=== PATIENT | female | born 1955 | race Caucasian/White ===

== ENCOUNTER 2021-10-08 11:11 | Outpatient (CLI) | payer MEDICARE, SELFPAY ==
--- NOTE | 2021-10-08 11:25 | MM_ITS ---
WS: [id number] BILATERAL SCREENING DIGITAL BREAST TOMOSYNTHESIS MAMMOGRAM WITH CAD HISTORY: SCREENING COMPARISON: 06/10/2020 and 05/21/2019 Bilateral CC and MLO views with tomosynthesis and synthetic mammography submitted. Computer aided det ection analyzed. Breast composition: There are scattered areas of fibroglandular density. No suspicious masses, microc alcifications or architectural distortion. Post biopsy changes in the upper outer quadrant of the LEF T breast are stable. MM/[place] [id number] IMPRESSION: BI-RADS: 2-Benign FOLLOW UP: 1 Year Follow-up
== END 2021-10-08 11:12 | disposition home or self-care (01) ==
PROVIDERS: Family Provider Nurse Practitioner Family; PCP Nurse Practitioner Family; Visit Provider Registered Nurse
DX: Z12.31 Encounter for screening mammogram for malignant neoplasm of breast (principal)
CPT/HCPCS: 77063; 77067

== ENCOUNTER 2022-10-10 12:28 | Outpatient (CLI) | payer MEDICARE, SELFPAY ==
--- NOTE | 2022-10-10 13:13 | MM_ITS ---
WS: [email or web address] BILATERAL 3D TOMOSYNTHESIS DIGITAL SCREENING MAMMOGRAPHY WITH CAD CLINICAL INFORMATION: SCREENING HISTORY: Screening mammogram. No current complaints. COMPARISON: 2021 TECHNIQUE: Bilateral CC and MLO views. FINDINGS: Scattered fibroglandular densities bilaterally. No suspicious focal mass, asymmetry, calcifications, or architectural distortion. No evidence of malignancy. Punctate and lucent centered calcifications. MM/[place] [id number] IMPRESSION: BI-RADS: 2-Benign FOLLOW UP: 1 Year Follow-up Recommend return to annual screening mammography.
== END 2022-10-10 12:29 | disposition home or self-care (01) ==
LOC: RAD 12:35
PROVIDERS: PCP Registered Nurse; Visit Provider Registered Nurse
DX: Z12.31 Encounter for screening mammogram for malignant neoplasm of breast (principal)
CPT/HCPCS: 77063; 77067

== ENCOUNTER 2023-10-07 15:52 | Emergency (ER) | payer MEDICARE, SELFPAY ==
[2023-10-07 15:56] VITALS: BP 159/88; PULSE 75; RESP 16; TEMP 36.6; O2SAT 99; BMI 29.6
--- NOTE | 2023-10-07 16:07 | XRR_ITS ---
PROCEDURE INFORMATION: Exam: XR Pelvis Exam date and time: 10/07/2023 5:18 PM Age: 68 years old Clinical indication: Pelvic pain; Additional info: Pain in pelvis/hip TECHNIQUE: Imaging protocol: Radiologic exam of the pelvis. Views: 1 or 2 view. COMPARISON: No relevant prior studies available. FINDINGS: Bones/joints: Normal mineralization and alignment. No evidence of acute fracture or dislocation. [id number] degenerative changes of the bilateral femoroacetabular joints. Visualized sacroiliac joints are within normal limits. Soft tissues: Unremarkable. XR/XR pelvis 1-2V* [id number] IMPRESSION: No evidence of acute fracture or dislocation.
--- NOTE | 2023-10-07 16:07 | XRR_ITS ---
PROCEDURE INFORMATION: Exam: XR Right Hip Exam date and time: 10/07/2023 5:20 PM Age: 68 years old Clinical indication: Hip pain; Right hip TECHNIQUE: Imaging protocol: Radiologic exam of the right hip. Views: 1 view hip with pelvis when performed. COMPARISON: CR (PELVIS, ) 10/07/2023 5:18 PM FINDINGS: Bones/joints: Normal mineralization and alignment. No evidence of acute fracture or dislocation. Aaln-[id number]-vivfdxse degenerative change of the right femoroacetabular joint. Soft tissues: The soft tissues are within normal limits. XR/XR hip RT 2-3V wo/w pel* [id number] IMPRESSION: No evidence of acute fracture or dislocation.
--- NOTE | 2023-10-07 18:20 | ED_ITS ---
HPI - Extremity Problem General: Chief complaint: Extremity Injury, Lower Stated complaint: pain in right hip and leg Time Seen by Provider: 10/07/23 17:04 History of Present Illness: 68-year-old female here with 4 weeks of right-sided hip pain, mainly posterior and lateral. She is having pain at night. She says she has been running a 0 turn mower quite a bit, and noticed that the pain started with increased use. No trauma otherwise. No numbness or tingling. No weakness. No back pain. No fever. Associated symptoms: Deny chest pain or fever(s) Review of Systems Const: Denies: fever(s) ENMT: Denies: throat pain Card: Denies: chest pain Resp: Denies: dyspnea GI: Denies: abdominal pain or vomiting : Denies: flank pain or difficulty voiding Musc: Denies: back pain Physical Exam Const: COMMON NORMALS: no acute distress GENERAL APPEARANCE: cooperative; not ill appearing and not frail appearing HENMT: COMMON NORMALS: normocephalic, atraumatic and Normal external nose present HEAD & SCALP: normocephalic and atraumatic FACE & SINUS: normal facial exam and face symmetric NOSE: Normal external nose present Eye: COMMON NORMALS: Equal, round and reactive pupils present and EOMs intact bilaterally PUPIL: Yes Equal, round and reactive pupils present Neck/C-Spine: GENERAL: Yes trachea midline Chest: CHEST: Yes Symmetrical chest wall rise Resp: COMMON NORMALS: normal respiratory effort, No retractions, No use of accessory muscles and clear to auscultation bilaterally AUSCULTATION: clear to auscultation bilaterally Cardio: COMMON NORMALS: regular rate and regular rhythm RATE: regular rate RHYTHM: regular rhythm GI: COMMON NORMALS: Normal to inspection, nondistended, normoactive bowel sounds present Back/Pelvis: OTHER: Exam reveals minimal tenderness over the trochanteric region and piriformis region of the right hip. No anterior tenderness. Straight leg raise test is negative. Sciatic stretch test is negative. Maia test is negative. Internal rotation is negative Extremity: COMMON NORMALS: no pedal edema Neuro: YON COMA SCALE: document GCS findings Yon coma scale eye opening: Spontaneous Yon coma scale verbal response: Orientated [place] coma scale motor response: Obey commands [place] coma scale total score: 15 SENSORY EXAM: Yes extremities (intact) Psych: COMMON NORMALS: speech normal SPEECH: Yes normal speech Skin: COMMON NORMALS: no rashes or lesions noted GENERAL SKIN EXAM: no rashes or lesions noted Course Vital Signs: Vital signs: Vital Signs Temperature 97.8 F 10/07/23 15:56 Pulse Rate 75 10/07/23 15:56 Respiratory Rate 17 10/07/23 18:27 Blood Pressure 159/88 10/07/23 15:56 Pulse Oximetry 99 10/07/23 18:27 Oxygen Delivery Me thod Room Air 10/07/23 15:56 MDM - Extremity (Nontraumatic) Medical Decision Making X-rays are negative for fracture. She does have some mild arthritic change of her right hip joint as well as her right sacroiliac joint. No red flag symptoms. Outpatient follow-up. Lab Data Radiology Impressions Hip/Pelvis X-Ray 10/07/23 16:07 IMPRESSION: No evidence of acute fracture or dislocation. Pelvis X-Ray 10/07/23 16:07 IMPRESSION: No evidence of acute fracture or dislocation. All radiology interpretation(s) finalized by discharge Discharge Plan Discharge Patient Disposition: Home Clinical Impression: Acute pain of right hip, Sciatic neuralgia Condition: Stable Prescriptions: New Medrol (Abhay) 4 mg tablets,dose pack See Rx Instructions .ROUTE .COMPLEX Qty: 21 0RF Rx Instructions: orally per package directions tramadol 50 mg tablet 50 mg PO Q8H PRN (Reason: pain) Qty: 10 0RF Discharge Orders: Discharge ED (Routine); Ordered 10/07/23 Ordered By: Óscar Amado Referrals: Romana Gray [Primary Care Provider] - 4-7 days Patient Instructions: Sciatica (ED), Hip Pain (ED), Opioid Safety, Pain Management Activity Restrictions/Additional Instructions: Medications as directed. Ice may help. See your doctor next week. Coding Level of Care Code ED Diaper Machine Tender for Janeth Peters
[2023-10-07 18:27] VITALS: RESP 17; O2SAT 99
[2023-10-07] MEDS: oxyCODONE-APAP 5-325 mg Tablet 2 TAB PO (18:27)
[2023-10-07] MEDS: dexamethasone 10 mg/mL INJ 8 MG PO (18:27)
== END 2023-10-07 18:42 | disposition home or self-care (01) ==
PROVIDERS: Emergency Provider Emergency Medicine; PCP Registered Nurse
DX: M25.551 Pain in right hip (principal); G58.8 Other specified mononeuropathies
CPT/HCPCS: 72170; 73502; 99284; J1100

== ENCOUNTER 2023-10-27 10:31 | Outpatient (CLI) | payer MEDICARE, SELFPAY ==
--- NOTE | 2023-10-27 10:37 | MM_ITS ---
WS: [id number] BILATERAL SCREENING DIGITAL TOMOSYNTHESIS MAMMOGRAM WITH CAD HISTORY: SCREENING COMPARISON: 10/10/2022, 10/08/2021, 06/10/2020 Bilateral CC and MLO views with tomosynthesis and synthetic mammography submitted. Computer aided det ection analyzed. Breast composition: There are scattered areas of fibroglandular density. No suspicious masses, microc alcifications or architectural distortion. Benign calcifications in each breast. MM/[place] [id number] IMPRESSION: BI-RADS: 2-Benign FOLLOW UP: 1 Year Follow-up
== END 2023-10-27 10:32 | disposition home or self-care (01) ==
LOC: RAD 10:31
PROVIDERS: PCP Registered Nurse; Visit Provider Registered Nurse
DX: R92.1 Mammographic calcification found on diagnostic imaging of breast (principal); R92.323 Mammographic fibroglandular density, bilateral breasts; R92.8 Other abnormal and inconclusive findings on diagnostic imaging of breast
CPT/HCPCS: 77063; 77067

== ENCOUNTER → 2024-07-02 11:10 | Outpatient (BNVA) | payer MEDICARE, SELFPAY | PROVIDERS: PCP Registered Nurse; Visit Provider Nurse Practitioner Family | DX: I10 Essential (primary) hypertension (principal); R53.83 Other fatigue; L60.4 Beau's lines; E55.9 Vitamin D deficiency, unspecified; R35.0 Frequency of micturition; E78.5 Hyperlipidemia, unspecified; N39.0 Urinary tract infection, site not specified | CPT/HCPCS: 80053; 80061; 81000; 82306; 82607; 85025; 87086 ==

== ENCOUNTER 2024-07-23 09:33 | Outpatient (CLI) | payer MEDICARE, SELFPAY ==
--- NOTE | 2024-07-23 10:00 | XRR_ITS ---
PROCEDURE INFORMATION: Exam: XR Right Hip Exam date and time: 07/23/2024 10:13 AM Age: 69 years old Clinical indication: Intermittent right hip pain x 1 yr, worse in the past month, no acute injury; Additional info: M25.551 - pain in right hip TECHNIQUE: Imaging protocol: Radiologic exam of the right hip. Views: 1 view hip with pelvis when performed. COMPARISON: CR XR hip RT 2-3V wo/w pel* [id number] 10/07/2023 5:20 PM FINDINGS: Bones/joints: Prominent right superolateral acetabular lip. This can result in femoroacetabular impingement. Mild osteitis pubis. Spondylosis visualized lower lumbar spine. Otherwise, unremarkable. Soft tissues: Unremarkable. XR/XR hip RT 2-3V wo/w pel* [id number] IMPRESSION: 1. Possible right femoroacetabular impingement. 2. Otherwise, negative right hip.
== END 2024-07-23 09:34 | disposition home or self-care (01) ==
PROVIDERS: PCP Nurse Practitioner Family; Visit Provider Nurse Practitioner Family
DX: M25.551 Pain in right hip (principal); R93.7 Abnormal findings on diagnostic imaging of other parts of musculoskeletal system; R93.89 Abnormal findings on diagnostic imaging of other specified body structures; M47.896 Other spondylosis, lumbar region
CPT/HCPCS: 73502

== ENCOUNTER 2024-08-13 09:21 | Outpatient (CLI) | payer MEDICARE, SELFPAY ==
--- NOTE | 2024-08-13 09:45 | MR_ITS ---
WS: [email or web address] EXAMINATION: MR hip RT wo con* [id number] ORDER DATE: 08/13/2024 9:25 AM COMPARISON: None. HISTORY: M25.551 - Pain in right hip CONTRAST: None. TECHNIQUE: Coronal STIR of the Pelvis. Coronal proton density, coronal T1, axial T2 fat sat, axial T1, sagittal T2 fat sat, and sagittal T1 performed of the hip. FINDINGS: Normal bone marrow signal in the bony pelvis and sacrum. Normal pubic rami. Normal bone marrow signal in the femoral heads and acetabulum bilaterally. No evidence of avascular necrosis. Moderate degenerative narrowing RIGHT hip. No subchondral edema. No acute fractures. Mild fluid and edema tip of the coccyx compatible with coccydynia. This is likely inflammatory. No visualized acute fractures. MR/MR hip RT wo con* [id number] IMPRESSION: 1. Moderate degenerative narrowing RIGHT hip. No acute fractures. No evidence of avascular necrosis. 2. Normal bone marrow signal in the bony pelvis and sacrum. 3. Tiny amount of fluid at the tip of the coccyx likely inflammatory can be se en with coccydynia.
== END 2024-08-13 09:22 | disposition home or self-care (01) ==
PROVIDERS: PCP Nurse Practitioner Family; Visit Provider Nurse Practitioner Family
DX: M16.11 Unilateral primary osteoarthritis, right hip (principal); R93.7 Abnormal findings on diagnostic imaging of other parts of musculoskeletal system
CPT/HCPCS: 73721

== ENCOUNTER → 2024-08-23 09:42 | Outpatient (BNVA) | payer MEDICARE, SELFPAY | PROVIDERS: PCP Nurse Practitioner Family; Visit Provider Orthopaedic Surgery | DX: M54.50 Low back pain, unspecified (principal); M25.551 Pain in right hip | CPT/HCPCS: 99204 ==

== ENCOUNTER 2024-09-17 12:55 | Outpatient (CLI) | payer MEDICARE, SELFPAY ==
--- NOTE | 2024-09-17 08:00 | MR_ITS ---
WS: [id number] MRI LUMBAR SPINE NONCONTRAST HISTORY: lumbar pain COMPARISON: None available. TECHNIQUE: Sagittal and axial multisequence imaging is submitted. Normal lumbar alignment with no compression fractures or marrow edema. Minimal disc desiccation throughout the lumbar spine. Conus terminates normally at L1. L1-L2: Mild disc bulging with mild ligamentum flavum and facet arthritis. Mild narrowing of the RIGHT subarticular recess. No stenosis. L2-L3: Mild annular disc bulging with small foraminal osteophytes. Mild ligamentum flavum and facet arthritis. There is mild degenerative change encroaching upon the posterior lateral thecal sac. Mild encroachment upon the subarticular recesses and traversing L3 nerve roots. Mild central and bilateral subarticular recess stenosis. L3-L4: Mild annular disc bulging with mild osteophytic ridging. Moderate ligamentum flavum and facet arthritis encroaching upon the thecal sac. Osteophytes encroach upon the posterior lateral RIGHT thecal sac. Mild central, subarticular recess and foraminal narrowing. There is a very tiny cyst associat ed with the RIGHT facet joint arthropathy, seen best on the sagittal sequence. L4-L5: Mild annular disc bulge with a shallow central disc protrusion. Marked ligamentum flavum and facet arthritis. Mild disc encroachment upon the ventral thecal sac. Moderate central, subarticular recess and foraminal stenosis. There is disc and osteophyte encroachment upon the L4 and L5 nerve roots. L5-S1: Mild disc bulging contacting the S1 nerve roots, RIGHT greater than LEFT. Mild disc contact also of the exiting L5 nerve roots. Mild foraminal stenosis. Paravertebral soft tissues are negative. MR/MR lumbar spine wo con* [id number] IMPRESSION: 1. No high-grade central or foraminal stenosis. 2. L3-4: Ligamentum flavum and facet joint arthropathy encroaching upon the th ecal sac. Mild central, subarticular recess and foraminal stenosis. Larger RIGH T foraminal osteophyte with a tiny facet joint cyst with contact on the nerve r oots in the RIGHT thecal sac. 3. L4-5: Moderate central, subarticular recess and foraminal stenosis. There i s disc osteophyte contact on the L4 and L5 nerve roots. 4. L5-S1: Mild disc contact on the S1 nerve roots, RIGHT greater than LEFT. Mi ld foraminal stenosis. 5. L2-3: Mild central and bilateral subarticular recess stenosis with mild dis c encroachment upon the traversing L3 nerve roots. 6. No fracture.
== END 2024-09-17 12:56 | disposition home or self-care (01) ==
LOC: RAD 12:56
PROVIDERS: PCP Nurse Practitioner Family; Visit Provider Orthopaedic Surgery
DX: M47.896 Other spondylosis, lumbar region (principal); M24.28 Disorder of ligament, vertebrae; M48.061 Spinal stenosis, lumbar region without neurogenic claudication; M25.78 Osteophyte, vertebrae; M48.07 Spinal stenosis, lumbosacral region; M51.369 Other intervertebral disc degeneration, lumbar region without mention of lumbar back pain or lower extremity pain; M51.379 Other intervertebral disc degeneration, lumbosacral region without mention of lumbar back pain or lower extremity pain
CPT/HCPCS: 72148

== ENCOUNTER → 2024-09-24 08:42 | Outpatient (BNVA) | payer MEDICARE, SELFPAY | PROVIDERS: PCP Nurse Practitioner Family; Visit Provider Orthopaedic Surgery | DX: M54.50 Low back pain, unspecified (principal); M48.062 Spinal stenosis, lumbar region with neurogenic claudication | CPT/HCPCS: 72110; 99203 ==

== ENCOUNTER 2024-10-28 08:00 | Outpatient (CLI) | payer MEDICARE, SELFPAY ==
--- NOTE | 2024-10-28 | MM_ITS ---
WS: [id number] BILATERAL SCREENING DIGITAL TOMOSYNTHESIS MAMMOGRAM WITH CAD HISTORY: ANNUAL SCREENING COMPARISON: 10/27/2023, 10/10/2022 Bilateral CC and MLO views with tomosynthesis and synthetic mammography submitted. Computer aided detection analyzed. Breast composition: There are scattered areas of fibroglandular density. No suspicious masses, microcalcifications or architectural distortion. Scattered benign calcifications. MM/MM scr BI tomosynthesis [id number] IMPRESSION: BI-RADS: 2 - Benign. FOLLOW UP: 1 Year Follow-up
== END 2024-10-28 08:01 | disposition home or self-care (01) ==
PROVIDERS: PCP Nurse Practitioner Family; Visit Provider Nurse Practitioner Family
DX: Z12.31 Encounter for screening mammogram for malignant neoplasm of breast (principal); R92.323 Mammographic fibroglandular density, bilateral breasts; R92.1 Mammographic calcification found on diagnostic imaging of breast
CPT/HCPCS: 77063; 77067

== ENCOUNTER → 2025-01-14 11:21 | Outpatient (BNVA) | payer MEDICARE, SELFPAY | PROVIDERS: PCP Nurse Practitioner Family; Visit Provider Nurse Practitioner Family | DX: E55.9 Vitamin D deficiency, unspecified (principal); I10 Essential (primary) hypertension | CPT/HCPCS: 80053; 80061; 82306 ==

== ENCOUNTER 2025-01-21 13:04 | Outpatient (CLI) | payer MEDICARE, SELFPAY ==
--- NOTE | 2025-01-21 13:30 | XR_ITS ---
WS: [email or web address] DEXA (DUAL ENERGY X-RAY ABSORPTIOMETRY) Bone mineral density was performed using a [employer] machine. HISTORY: M81.0 - Age-related osteoporosis without current patholog... COMPARISON: None available. Lumbar spine BMD (L1-L4): 1.327 g/cm2 T score: 1.2 Z score: 2.1 Total hip BMD: Left: 0.901 g/cm2. T score: -0.8 Z score: 0.0 Right: 0.920 g/cm2. T score: -0.7 Z score: 0.2 10 year probability of a major osteoporotic fracture is 10.5%. XR/XR DEXA axial skeleton* [id number] IMPRESSION: NORMAL BONE MINERAL DENSITY based upon the WHO classification for females.
== END 2025-01-21 13:05 | disposition home or self-care (01) ==
LOC: RAD 13:06
PROVIDERS: PCP Nurse Practitioner Family; Visit Provider Nurse Practitioner Family
DX: Z13.820 Encounter for screening for osteoporosis (principal); M81.0 Age-related osteoporosis without current pathological fracture
CPT/HCPCS: 77080